=== PATIENT | male | born 1995 ===

== ENCOUNTER 2017-01-19 13:12 | Emergency (ER) | payer OTHER ==
[2017-01-19] MEDS ORDERED: NS 1,000 ML IV ONE (14:44)
--- NOTE | 2017-01-19 15:06 | EDPHY ---
H & P Stated Complaint: fevers/hale/stiff neck x 5 days hypotensive HPI/ROS: CHIEF COMPLAINT: Flu-like symptoms HISTORY OF PRESENT ILLNESS: Patient complains of 4-5 days history of headache, neck pain and stiffness, fever chills, body aches, congestion, sore throat, cough, chest pain. Symptoms started rather abruptly on Wednesday. They have been constant in duration. Moderate to severe. Have started to improve as of this morning. Says that he is here because his friends and family convinced him to come. He says he does not want to be here. Denies any trauma or injury to the head. He denies habits difficulty with thought process. He denies any weakness or sensory changes in any of his extremities. Has no abdominal pain he. Some nausea but no vomiting. No flank pain. No urinary complaints. REVIEW OF SYSTEMS: Ten systems reviewed and are negative unless otherwise noted in the HPI PERTINENT MEDICAL HISTORY: Ankylosing spondylitis EXAMINATION General Appearance: Alert, no distress Head: normocephalic, atraumatic Eyes: Pupils equal and round, no conjunctival pallor or injection ENT, Mouth: Mucous membranes moist. Uvula midline. Minimal erythema. No posterior edema. No evidence of abscess. Airway is widely patent. Neck: Normal inspection. Neck is supple. There is pain with passive extension flexion of the neck. He has active passive flexion that is painful but unable to place the chin to chest. Positive Kernig. Respiratory: Lungs are clear to auscultation. No wheezing, rhonchi or crackles. Cardiovascular: Regular rate and rhythm. No murmur. Pulses intact distally. Gastrointestinal: Abdomen is soft and nontender. No splenomegaly. Back: non-tender, no bony abnormalities Neurological: A&O, nonfocal, normal gait. Strength is symmetric Skin: Warm and dry, no rash. No petechia purpura Extremities: Nontender, no pedal edema Psychiatric: Mood and affect normal DIFFERENTIAL DIAGNOSES: Including but not limited to influenza, meningitis, viral illness, pneumonia, cephalgia MDM: 2:45 p.m. Headache, fever and flu-like symptoms with mild nuchal rigidity. Vital signs are within normal limits here. 3:15 p.m. Notified by nurse workers' compensation claims supervisor that the patient is asking to leave. I have re- evaluated him. I was in the room for 10 minutes. We discussed risks, benefits and alternatives. He informs me that he has an aversion to for further test no , that he is upset that the 1st IV was missed. He says that he is feeling better and does not want any further workup. He is declining IV placement, laboratory studies any further testing. I informed him that the chest x-ray that was performed does not appear to have anything acute by my interpretation but has not yet been read by the radiologist. The influenza swab has been sent but not yet returned. We discussed the risks of not receiving her further treatment including deterioration and . Why do not feel this is likely I informed him that I cannot make any guarantees, and I strongly recommend that he remain in the emergency department to complete his workup. Bowel he is capable of making his medical decisions at this time, and he is willing to assume the risks as delineated above. Discharged home with normal vital signs but with examination suggesting meningitis. I asked him to return to the emergency department at any time should he change his mind to complete his workup. I have asked him to complete an against medical advice form and he has agreed to sign it. SUPERVISION: This patient was independently evaluated without direct examination by the attending physician. Case was discussed with attending physician. Case discussed with Dr. Orozco Source: Patient, Family Exam Limitations: No limitations - Personal History Current Tetanus/Diphtheria Vaccine: Yes - Medical/Surgical History Hx Asthma: No Hx Chronic Respiratory Disease: No Hx Diabetes: No Hx Cardiac Disease: No Hx Renal Disease: No Hx Cirrhosis: No Hx Alcoholism: No Hx HIV/AIDS: No Hx Splenectomy or Spleen Trauma: No Other PMH: ankylosing spondylitis/choly - Social History Smoking Status: Current some day smoker Constitutional: Initial Vital Signs Temperature (C) 99.0 F 01/19/17 13:19 Heart Rate 68 01/19/17 13:19 Respiratory Rate 20 01/19/17 13:19 Blood Pressure 86/58 L 01/19/17 13:19 O2 Sat (%) 94 01/19/17 13:19 O2 Delivery Mode Room Air Allergies/Adverse Reactions: cetirizine [From Zyrtec] Allergy (Verified 01/19/17 13:17) steroids Allergy (Uncoded 01/19/17 13:18) Home Medications: Medication Instructions Recorded Herbs 01/19/17 Medical Decision Making - Data Points Laboratory Results: 01/19/17 14:50 Influenza Typ A,B (DFA) NEGATIVE FOR FLU (NEGATIVE) Departure - Departure Disposition: Against Medical Advice Clinical Impression: Neck pain Headache Qualifiers: Headache type: unspecified Headache chronicity pattern: acute headache Intractability: not intractable Qualified Code(s): R51 - Headache Fever Qualifiers: Fever type: unspecified Qualified Code(s): R50.9 - Fever, unspecified Condition: Fair Instructions: Viral Meningitis (ED), Bacterial Meningitis (ED), Influenza (ED) Additional Instructions: Please return to the emergency department should she change your mind and want to continue workup. Return here immediately for any chest pain, worsening headache, worsening neck pain or stiffness or intractable vomiting Referrals: NONE *PRIMARY CARE P,. [Primary Care Provider] - As per Instructions Rose Marrufo MD [[facility] Primary Care Provider] - As per Instructions
[2017-01-19 15:29] VITALS: BP 99/78; PULSE 87; RESP 16; TEMP 98.3; O2SAT 96
== END 2017-01-19 15:23 | disposition left against medical advice (07) ==
DX: M54.2 Cervicalgia (principal); R51 Headache; R50.9 Fever, unspecified; F17.200 Nicotine dependence, unspecified, uncomplicated

== ENCOUNTER → 2017-12-07 | Outpatient (CLI) | payer OTHER | LOC: BMCIMAGING 11:08 → EDSTATUS 11:13 | PROVIDERS: ATTEND Physician Assistant | DX: K59.00 Constipation, unspecified (principal) ==